=== PATIENT | female | born 1935 | race Caucasian/White ===

== ENCOUNTER 2020-12-21 13:37 | Emergency (ER) | payer MEDICARE, BC ==
[2020-12-21] MEDS ORDERED: Diphtheria,Pertussis(Acell),Tetanus Vaccine 0.5 ML Syringe IM ONE (13:47)
[2020-12-21] MEDS ORDERED: Lidocaine 1% 30 ML SDV INJECT ONE (13:47)
[2020-12-21] MEDS ORDERED: Bacitracin Oint 1 GM U/D Packet TOP ONE (13:47)
[2020-12-21] MEDS ORDERED: Cephalexin 500 MG Cap PO ONE (14:10)
--- NOTE | 2020-12-21 14:21 | CR ---
PROCEDURE INFORMATION: Exam: XR Right Finger(s) Exam date and time: 12/21/2020 2:08 PM Age: 85 years old Clinical indication: Injury or trauma; Other: Cut/crushed finger on wheel chair; Crushing; Right; Ring finger TECHNIQUE: Imaging protocol: XR Right fingers. Views: Minimum 2 views. COMPARISON: No relevant prior studies available. FINDINGS: Bones/joints: Multiple views of the right/ring finger demonstrate a mildly displaced fracture of the tuft of the distal phalanx. There is diffuse decrease in overall bone mineral density with moderate moderate grade degenerative change within the interphalangeal joints. Soft tissues: Normal. IMPRESSION: Mildly displaced fracture of the tuft of the distal phalanx of the right/4th ring finger.
--- NOTE | 2020-12-21 14:35 | EDM.PDOC ---
Scribed by Leah Salas 12/21/20 [id number] for Anita Galindo MD ED HPI GENERAL MEDICAL PROBLEM - General Chief Complaint: Laceration Stated Complaint: [id number] CUT FINGER OFF ON WHEELCHAIR Time Seen by Provider: 12/21/20 13:50 Source of Information: Reports: Patient, RN, RN Notes Reviewed History Limitations: Reports: No Limitations - History of Present Illness INITIAL COMMENTS - FREE TEXT/NARRATIVE: Patient in the hospital to visit her after being told that it was be advisable to wait in the car due to a number of active COVID cases in the facility. She elected to get into a hospital wheelchair to go to the medical floor. She got her right 4th finger stuck in the wheelchair causing a crush and laceration injury. Denies any other injury. Date of last tetanus is unknown. Onset: Today Duration: Constant Location: Reports: Upper Extremity, Right Quality: Reports: Ache Severity: Moderate Improves with: Reports: None Worsens with: Reports: None Associated Symptoms: Reports: No Other Symptoms - Related Data Allergies Allergy/AdvReac Type Severity Reaction Status Date / Time No Known Allergies Allergy Verified 12/21/20 13:44 Home Meds: Home Meds Aspirin [Halfprin] 81 mg PO BID 07/02/19 [History] [place]/D3/Mag11/Zinc/Conductor Orchestra/Woodrow/Bor [Caltrate 600+D Plus Tablet] 1 tab PO DAILY 07/02/19 [History] Carbidopa/Levodopa [Carbidopa-Levodopa 25-100 Tab] 1 tab PO TID 07/02/19 [History] Cholecalciferol (Vitamin D3) [Vitamin D3] 2,000 unit PO BEDTIME 07/02/19 [History] Denosumab [Prolia] 60 mg SQ .[id number] 07/02/19 [History] Fish Oil/Borage/Flax/Om3,6,9 1 [[place] 3-6-9 Complex Softgel] 400 mg PO DAILY 07/02/19 [History] Flaxseed Oil [Flaxseed] 1,000 mg PO BID 07/02/19 [History] Glucosamine Sulfate 1,000 mg PO BID 07/02/19 [History] Metoprolol Tartrate 25 mg PO BID 07/02/19 [History] Multivit-Min/FA/Lycopen/Lutein [Centrum Silver Men Tablet] 1 tab PO DAILY 07/02/19 [History] Red Yeast Rice 600 mg PO BID 07/02/19 [History] Past Medical History HEENT History: Reports: Impaired Vision Cardiovascular History: Reports: Hypertension Respiratory History: Reports: None Gastrointestinal History: Reports: None Genitourinary History: Reports: None [employer] History: Reports: Musculoskeletal History: Reports: Back Pain, Chronic, Osteoporosis Neurological History: Reports: None Psychiatric History: Reports: None Endocrine/Metabolic History: Reports: Osteoporosis Hematologic History: Reports: None Immunologic History: Reports: None Oncologic (Cancer) History: Reports: None Dermatologic History: Reports: None - Infectious Disease History Infectious Disease History: Reports: Measles, Mumps - Past Surgical History Head Surgeries/Procedures: Reports: None HEENT Surgical History: Reports: Cataract Surgery Cardiovascular Surgical History: Reports: None Respiratory Surgical History: Reports: None GI Surgical History: Reports: Cholecystectomy, Colonoscopy Female Surgical History: Reports: Hysterectomy Endocrine Surgical History: Reports: None Neurological Surgical History: Reports: Other (See Below) Other Neurological Surgeries/Procedures: back surg Musculoskeletal Surgical History: Reports: Knee Replacement Social & Family History - Family History Family Medical History: No Pertinent Family History - Caffeine Use Caffeine Use: Reports: Coffee Other Caffeine Use: 1 CUP DAILY Review of Systems - Review of Systems Review Of Systems: Comprehensive ROS is negative, except as noted in HPI. ED EXAM, GENERAL - Physical Exam Exam: See Below Exam Limited By: No Limitations General Appearance: Alert, WD/WN, No Apparent Distress Head: Atraumatic, Normocephalic Neck: Normal Inspection Respiratory/Chest: No Respiratory Distress, Lungs Clear Extremities: Normal Range of Motion, Normal Capillary Refill, Other (distal right 4th finger with a laceration nearly circumferential (sparing 0.5mm on volar pad) with distruption of the nail plate (partial convulsion) No tendon injury. ) ED TRAUMA EXTREMITY PROCEDURES - Laceration/Wound Repair Right Digit - 4th (Ring) Lac/Wound Length In cm: 2 Appearance: Irregular, Clean Distal NVT: Neuro & Vascular Intact, No Tendon Injury Anesthetic Type: Digital Local Anesthesia - Lidocaine (Xylocaine): 1% Plain Local Anesthetic Volume: 4cc Skin Prep: Chlorhexidine (Hibiciens), Saline, Sterile Drape Saline Irrigation (cc's): 1,000 Exploration/Debridement/Repair: Wound Explored, In a Bloodless Field, Explored to Base, Moderate Debridement, Moderately Undermined, No Foreign Material Found, Multiple Flaps Aligned Closed With: Sutures Suture Size: 4-0 # of Sutures: 8 Suture Type: Nylon, Interrupted Sterile Dressing Applied: Nurse Tetanus Status Addressed: Yes Complications: No Course - Vital Signs Last Recorded V/S: Last Vital Signs Temp 97.2 F 12/21/20 13:51 Pulse 96 12/21/20 13:51 Resp 18 12/21/20 13:51 BP 146/73 H 12/21/20 13:51 Pulse Ox 98 12/21/20 13:51 - Orders/Labs/Meds Meds: Medications Discontinued Medications Generic Name Dose Route Start Last Admin Trade Name Freq PRN Reason Stop Dose Admin Bacitracin 1 dose 12/21/20 13:47 12/21/20 13:56 Bacitracin Oint 1 Gm U/D Packet TOP 12/21/20 13:48 1 dose ONETIME ONE Administration Cephalexin 500 mg 12/21/20 14:10 12/21/20 14:30 Cephalexin 500 Mg Cap PO 12/21/20 14:11 500 mg ONETIME ONE Administration Diphtheria/Tetanus/Acell Pertussis 0.5 ml 12/21/20 13:47 12/21/20 13:57 Diphtheria,Pertussis(Acell),Tetanus Vaccine 0.5 Ml Syringe IM 12/21/20 13:48 0.5 ml .ONCE ONE Administration Lidocaine HCl 30 ml 12/21/20 13:47 12/21/20 13:57 Lidocaine 1% 30 Ml Sdv INJECT 12/21/20 13:48 30 ml ONETIME ONE Administration - Radiology Interpretation Free Text/Narrative:: [facility] Final Radiology Report Call: [phone] assistance Online chat: [email or web address] Name: SALVADOR WOMACK Age: 85Years F Date: 12/21/2020 SSN: -- : [id number] Study: CR FINGERS FOURTH DIGIT RT Requesting Physician: ANITA GALINDO Images: 2 Addl Studies: Provided Clinical History: cut/crushed finger on wheel chair Contrast: Contrast Medium: Contrast Amount: Contrast Method: CONFIDENTIALITY STATEMENT This report is intended only for use by the referring physician, and only in accordance with law. If you received this in error, call [phone]. Page 1 of 1 PROCEDURE INFORMATION: Exam: XR Right Finger(s) Exam date and time: 12/21/2020 2:08 PM Age: 85 years old Clinical indication: Injury or trauma; Other: Cut/crushed finger on wheel chair; Crushing; Right; Ring finger TECHNIQUE: Imaging protocol: XR Right fingers. Views: Minimum 2 views. COMPARISON: No relevant prior studies available. FINDINGS: Bones/joints: Multiple views of the right/ring finger demonstrate a mildly displaced fracture of the tuft of the distal phalanx. There is diffuse decrease in overall bone mineral density with moderate moderate grade degenerative change within the interphalangeal joints. Soft tissues: Normal. IMPRESSION: Mildly displaced fracture of the tuft of the distal phalanx of the right/4th ring finger. Thank you for allowing us to participate in the care of your patient. Dictated and Authenticated by: Mark Mann MD 12/21/2020 2:20 PM Central Time ([place] & [place]) Departure - Departure Time of Disposition: 14:32 Disposition: Home, Self-Care 01 Condition: Good Clinical Impression: Open fracture of distal phalanx of right ring finger Qualifiers: Encounter type: initial encounter Fracture alignment: nondisplaced Qualified Code(s): S62.664B - Nondisplaced fracture of distal phalanx of right ring finger, initial encounter for open fracture - Discharge Information *PRESCRIPTION DRUG MONITORING PROGRAM REVIEWED*: Not Applicable *COPY OF PRESCRIPTION DRUG MONITORING REPORT IN PATIENT FRANCOIS: Not Applicable Instructions: Nail Avulsion, Finger Fracture, Adult, [id number], Nail Bed Injury Referrals: PCP,None [Primary Care Provider] - Forms: ED Department Discharge Additional Instructions: Rx: Cephalexin 500mg Keep injured finger clean and dry. Follow up in clinic in 7 to 10 days for suture removal. Expect the finger nail to fall off. I have read and agree with the documentation that has been completed regarding this visit. By signing this record, I attest that the documentation was completed in my physical presence and is an accurate record of the encounter.
== END 2020-12-21 14:47 | disposition home or self-care (01) ==
LOC: DL.ED 13:37
DX: S62.664B Nondisplaced fracture of distal phalanx of right ring finger, initial encounter for open fracture (principal); I10 Essential (primary) hypertension; Z79.82 Long term (current) use of aspirin; Z79.899 Other long term (current) drug therapy; Z23 Encounter for immunization; W23.0XXA Caught, crushed, jammed, or pinched between moving objects, initial encounter
CPT/HCPCS: 73140; 90471; 90715; 99283; 99284; A9270

== ENCOUNTER 2020-12-30 12:35 | Emergency (ER) | payer MEDICARE, BC ==
--- NOTE | 2020-12-30 12:59 | EDM.PDOC ---
ED HPI GENERAL MEDICAL PROBLEM - General Chief Complaint: Wound Recheck Stated Complaint: RIGHT RING FINGER Time Seen by Provider: 12/30/20 12:57 Source of Information: Reports: Patient, Old Records, RN, RN Notes Reviewed History Limitations: Reports: No Limitations - History of Present Illness INITIAL COMMENTS - FREE TEXT/NARRATIVE: Pt seen here on 12/21/20 with right 4th finger lac. and distal tuft fracture. Presents now for wound check and suture removal. Denies pain, redness, or drainage. Onset Date: 12/21/20 Duration: Constant Location: Reports: Upper Extremity, Right Quality: Reports: Other (Denies pain) Improves with: Reports: None Worsens with: Reports: None Associated Symptoms: Reports: No Other Symptoms - Related Data Allergies Allergy/AdvReac Type Severity Reaction Status Date / Time No Known Allergies Allergy Verified 12/21/20 13:44 Home Meds: Home Meds Aspirin [Halfprin] 81 mg PO BID 07/02/19 [History] [place]/D3/Mag11/Zinc/Burial Vault Setter/Woodrow/Bor [Caltrate 600+D Plus Tablet] 1 tab PO DAILY 07/02/19 [History] Carbidopa/Levodopa [Carbidopa-Levodopa 25-100 Tab] 1 tab PO TID 07/02/19 [History] Cholecalciferol (Vitamin D3) [Vitamin D3] 2,000 unit PO BEDTIME 07/02/19 [History] Denosumab [Prolia] 60 mg SQ .[id number] 07/02/19 [History] Fish Oil/Borage/Flax/Om3,6,9 1 [[place] 3-6-9 Complex Softgel] 400 mg PO DAILY 07/02/19 [History] Flaxseed Oil [Flaxseed] 1,000 mg PO BID 07/02/19 [History] Glucosamine Sulfate 1,000 mg PO BID 07/02/19 [History] Metoprolol Tartrate 25 mg PO BID 07/02/19 [History] Multivit-Min/FA/Lycopen/Lutein [Centrum Silver Men Tablet] 1 tab PO DAILY 07/02/19 [History] Red Yeast Rice 600 mg PO BID 07/02/19 [History] Past Medical History HEENT History: Reports: Impaired Vision Cardiovascular History: Reports: Hypertension Respiratory History: Reports: None Gastrointestinal History: Reports: None Genitourinary History: Reports: Urinary Incontinence INSPECTOR LINE History: Reports: Musculoskeletal History: Reports: Back Pain, Chronic, Osteoporosis Neurological History: Reports: Parkinson's Psychiatric History: Reports: Dementia Endocrine/Metabolic History: Reports: Osteoporosis Hematologic History: Reports: None Immunologic History: Reports: None Oncologic (Cancer) History: Reports: None Dermatologic History: Reports: None - Infectious Disease History Infectious Disease History: Reports: Measles, Mumps - Past Surgical History Head Surgeries/Procedures: Reports: None HEENT Surgical History: Reports: Cataract Surgery Cardiovascular Surgical History: Reports: None Respiratory Surgical History: Reports: None GI Surgical History: Reports: Cholecystectomy, Colonoscopy Female Surgical History: Reports: Hysterectomy Endocrine Surgical History: Reports: None Neurological Surgical History: Reports: Other (See Below) Other Neurological Surgeries/Procedures: back surg Musculoskeletal Surgical History: Reports: Knee Replacement Social & Family History - Family History Family Medical History: No Pertinent Family History - Caffeine Use Caffeine Use: Reports: Coffee Other Caffeine Use: 1 CUP DAILY - Living Situation & Occupation Living situation: Reports: , with Spouse Occupation: Retired ED ROS GENERAL - Review of Systems Review Of Systems: Comprehensive ROS is negative, except as noted in HPI. ED EXAM, SKIN/RASH Exam: See Below Exam Limited By: No Limitations General Appearance: Alert, WD/WN, No Apparent Distress, Obese Throat/Mouth: Normal Voice, No Airway Compromise Head: Atraumatic, Normocephalic Respiratory/Chest: No Respiratory Distress Peripheral Pulses: 3+: Radial (L), Radial (R) Neurological: Other (Right 4th distal finger lac. well healed, no signs of infection. The nail looks like it will slough off soon.) Psychiatric: Normal Mood Skin: Warm, Dry Course - Re-Assessments/Exams Free Text/Narrative Re-Assessment/Exam: 12/30/20 13:07 Sutures removed by RN. Departure - Departure Time of Disposition: 13:07 Disposition: Home, Self-Care 01 Condition: Good Clinical Impression: Encounter for re-check of laceration wound, Encounter for removal of sutures - Discharge Information *PRESCRIPTION DRUG MONITORING PROGRAM REVIEWED*: Not Applicable *COPY OF PRESCRIPTION DRUG MONITORING REPORT IN PATIENT FRANCOIS: Not Applicable Instructions: Suture Removal, Care After Forms: ED Department Discharge Additional Instructions: May leave wound open to air. Cover with bandage if needed to keep it clean or for comfort. Follow up with your primary clinic if any further concerns.
== END 2020-12-30 13:13 | disposition home or self-care (01) ==
LOC: DL.ED 12:35
DX: S61.214D Laceration without foreign body of right ring finger without damage to nail, subsequent encounter (principal); G31.83 Neurocognitive disorder with Lewy bodies; F02.80 Dementia in other diseases classified elsewhere, unspecified severity, without behavioral disturbance, psychotic disturbance, mood disturbance, and anxiety; I10 Essential (primary) hypertension; Z79.82 Long term (current) use of aspirin; Z79.899 Other long term (current) drug therapy; X58.XXXD Exposure to other specified factors, subsequent encounter
CPT/HCPCS: 99282

== ENCOUNTER 2022-07-11 15:38 | Emergency (ER) | payer BC, MEDICARE ==
[2022-07-11 15:35] LABS: PTT,PARTIAL THROMBOPLSTIN TIME 23.4 SEC (22.0-34.0)
[2022-07-11 15:38] LABS: ANION GAP 13.8 mEq/L (7-13); CHLORIDE,CL 105 mmol/L (98-107); SODIUM,NA 142 mmol/L (136-145)
[2022-07-11 15:42] LABS: ESTIMATED GFR 37 mL/min (>=60)
[2022-07-11] MEDS ORDERED: Sodium Chloride 0.9% 1,000 ML IV ONE (15:55)
[2022-07-11] MEDS ORDERED: cefTRIAXone 1 GM in Sodium Chloride 0.9% 50 ML IV ONE (15:57)
[2022-07-11] MEDS ORDERED: Heparin Sodium 5,000 Units/ML Vial IVPUSH ONE (17:44)
[2022-07-11] MEDS ORDERED: Heparin Sodium/0.45% NaCl 25,000 UNITS/500 ML BAG IV SCH (17:45)
[2022-07-11] MEDS ORDERED: Aspirin 81 MG Tab.Chew PO ONE (17:47)
[2022-07-11 19:03] LABS: CORONAVIRUS COVID-19 NAA NEGATIVE (NEGATIVE)
== END 2022-07-11 18:42 ==
LOC: DL.ED 15:38
DX: I21.4 Non-ST elevation (NSTEMI) myocardial infarction (principal); I10 Essential (primary) hypertension; Z79.82 Long term (current) use of aspirin; Z79.899 Other long term (current) drug therapy; Z20.822 Contact with and (suspected) exposure to COVID-19
CPT/HCPCS: 0240U; 36415; 71045; 80053; 81001; 83735; 84484; 85025; 85610; 85730; 87086; 87088; 87186; 93005; 96361; 96365; 96367; 99285; A9270; J0696; J1644; J7030